=== PATIENT | female | born 1980 | race Caucasian/White ===

== ENCOUNTER 2024-07-06 19:08 | Emergency (ER) | payer OTHER ==
[~2024-07-06] VITALS: Ht 165.1 cm; Wt 74.8 kg
[2024-07-06] MEDS ORDERED: ACETAMINOPHEN 500 MG TABLET ONE (19:21)
[2024-07-06] MEDS ORDERED: ONDANSETRON HCL 4 MG TABLET ONE (19:21)
[2024-07-06] MEDS: ONDANSETRON HCL 4 MG TABLET PO ONE (19:23)
[2024-07-06] MEDS: ACETAMINOPHEN 500 MG TABLET PO ONE (19:23)
[2024-07-06] MEDS ORDERED: SERT50TA PO (19:28)
[2024-07-06 19:54] LABS: *BILIRUBIN,URIN NEGATIVE (NEGATIVE); *BLOOD, URINE 3+ (NEGATIVE); *CLARITY,URINE CLEAR (CLEAR); *COLOR,URINE YELLOW (YELLOW); *KETONES,URINE NEGATIVE (NEGATIVE); *PROTEIN,URINE NEGATIVE (NEGATIVE); *UROBILINOGEN,URINE 0.2 E.U./dl (NORMAL); LEUKOCYTE ESTERASE ,URINE NEGATIVE (NEGATIVE); NITRITE, URINE NEGATIVE (NEGATIVE); PH,URINE 7.5 (5.0-8.0); UGLUCOSE NEGATIVE (NEGATIVE)
[2024-07-06 19:58] LABS: *URINE HCG, QUAL NEGATIVE (NEGATIVE)
[2024-07-06 20:06] LABS: BACTERIA,URINE NONE SEEN /HPF (NONE SEEN); SQUAMOUS EPITHELIAL CELL,UR MODERATE /HPF (NONE SEEN); WBC,URINE 0-3 /HPF (0-3)
[2024-07-06] MEDS ORDERED: ACET-2605 PO (20:43)
[2024-07-06] MEDS ORDERED: DIAZ5TAB PO (20:43)
[2024-07-06] MEDS ORDERED: DIAZEPAM 5 MG TABLET ONE (20:53)
[2024-07-06] MEDS: DIAZEPAM 2 MG TABLET PO ONE (20:56)
[2024-07-06 21:05] VITALS: BP 138/77; O2SAT 99
== END 2024-07-06 21:05 | disposition home or self-care (01) ==
LOC: ER 19:10
DX: R51.9 Headache, unspecified (principal); R11.0 Nausea; M54.2 Cervicalgia; R10.2 Pelvic and perineal pain; F41.9 Anxiety disorder, unspecified; Z79.899 Other long term (current) drug therapy; V89.2XXA Person injured in unspecified motor-vehicle accident, traffic, initial encounter; Y93.89 Activity, other specified; Y92.410 Unspecified street and highway as the place of occurrence of the external cause; Y99.8 Other external cause status
CPT/HCPCS: 70450; 71045; 72125; 84703; A4606; A4663; A9150; Q0162